=== PATIENT | male | born 2000 | race Caucasian/White ===

== ENCOUNTER 2021-04-27 05:15 | Emergency (ER) | payer OTHER ==
[~2021-04-27] VITALS: Ht 162.6 cm; Wt 77.1 kg
[2021-04-27 05:15] VITALS: BP 107/69
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
--- NOTE | 2021-04-27 06:05 | NUR ---
Dr. Mcgee examining patient.
[2021-04-27 06:30] VITALS: BP 107/69
--- NOTE | 2021-04-27 06:30 | NUR ---
PATIENT BIB [facility] POLICE DEPT. PATIENT EXAMINED BY DR. KRAUSE. PATIENT MEDICALLY CLEARED AND RELEASED IN CUSTODY IN STABLE CONDITION. ORIGINAL PRE-BOOK FORM GIVEN TO OFFICER Sydney BLANCO #[id number]
== END 2021-04-27 06:30 ==
LOC: MED 05:15
DX: Z02.89 Encounter for other administrative examinations (principal); V89.2XXA Person injured in unspecified motor-vehicle accident, traffic, initial encounter; Y93.89 Activity, other specified; Y92.89 Other specified places as the place of occurrence of the external cause; Y99.8 Other external cause status
CPT/HCPCS: 99283